=== PATIENT | female | born 2000 | race Caucasian/White ===

== ENCOUNTER 2023-10-07 00:03 | Inpatient (IN) | payer BC, MEDICAID, SELFPAY ==
[2023-10-06 21:14] LABS: Basophils % 0.1 %; Eosinophils % 0.2 %; Hematocrit 30.7 % (36-47); Lymphocytes # 1.3 10^3/uL (0.8-4.8); Lymphocytes % 8.8 %; Mean Corpuscular HGB Conc 29.6 g/dL (30-55); Mean Corpuscular Hemoglobin 22.6 pg (27-33); Mean Corpuscular Volume 76.2 fl (85-98); Monocytes # 1.2 10^3/uL (0.2-0.9); Monocytes % 7.6 %; Neutrophils # 12.43 10^3/uL (1.8-7.7); Neutrophils % 82.4 %; Nucleated Red Blood Cells % 0.1 %; Platelet Count 242 10^3/cmm (157-399); Red Blood Count 4.03 10^6/uL (3.85-5.65); Red Cell Distribution Width 17.4 % (12.1-15.1)
[2023-10-06] MEDS: lactated ringers 1,000 ML 999 ML IV (21:14)
[2023-10-06 21:27] VITALS: BMI 29.5
--- NOTE | 2023-10-06 22:06 | P.ANESASSM_ITS ---
Pre-Anesthetic Assessment Height/Weight: Height 1.6 m Weight 75.75 kg O2 Del Method Room Air 10/06/23 20:56 Labor epidural Familial anesthetic complications: None Was Beta William taken within 24 hours: N/A Was Clonidine taken within 24 hours: N/A Last intake: 1800 solid foods Social No alcohol and No tobacco Exam alert, oriented x 3, clear to auscultation bilaterally and regular rate & rhythm Airway Submandibular: within normal limits Cervical ROM: within normal limits Mallampati: Class II Dentition: partials History/ROS No significant history except as noted and No significant complaints Pulmonary None reported CV/HEM None reported None reported Hepatic None reported GI Gastroesophageal Reflux Disease Metabolic None reported Musc/skel None reported Neuropsych None reported Anesthetic Plan ASA status: 2 Anesthesia: Anesthesia Evaluation, General and Regional (specify below) (Epidural) Risk of > 500 ml blood loss (7ml/kg in children): No Medications/Allergies Home Medications Medication Instructions Recorded Confirmed Last Taken Type ferrous sulfate 27 mg iron tablet 27 mg PO DAILY 10/06/23 10/06/23 10/06/23 History [id number] 1 mg 1 tab PO DAILY 10/06/23 10/06/23 10/06/23 History tablet Allergies Allergy/AdvReac Type Severity Reaction Status Date / Time No Known Allergies Allergy Verified 10/06/23 21:21 Current Medications Generic Name Dose Route Start Last Admin Trade Name Freq PRN Reason Stop Dose Admin Lactated Ringer's 1,000 mls @ 999 mls/hr 10/06/23 20:58 10/06/23 21:14 Lactated Ringers IV 999 mls/hr .Q1H1M PRN Administration See label comments PFS Anesthesia Female Reproductive History : 2 Data Anesthesia 10/06/23 21:05 Short CBC 10/06/23 Range/Units 21:05 WBC 15.10 H (3.29-11.43) 10^3/uL Hgb 9.10 L (11.27-16.99) g/dL Hct 30.7 L (36-47) % MCV 76.2 L (85-98) fl Plt Count 242 (157-399) 10^3/cmm Neut % (Auto) 82.4 % Neut # (Auto) 12.43 H (1.8-7.7) 10^3/uL Blood Bank 10/06/23 21:05 Blood Type O Positive Rho(D) Type Rh positive Antibody Screen Negative Cardiac Studies: 2 No Data to Display
--- NOTE | 2023-10-06 22:38 | ANES.PROC ---
Anesthesia Procedures Procedure/Date: 10/06/23 Epidural: Time Out Performed: Yes Consents Signed: Procedure Consent and NPO Consent Consent: requested by attending/covering physician, from patient, risks and benefits reviewed and patient agrees to proceed Lumbar Level: L3-L4 Epidural position: sitting Epidural procedure: sterile prep of area (betadine), 1% lidocaine to numb the area (3 mLs), neg for paresthesia, test dose given, 1.5% xylocaine 1:200k epi (3 mLs/ 2 mLs), 0.2% Ropivacaine bolus ml (5 mLs), placed PCEA, no systemic response, sterile dressing applied, L.U.D. no apparent complications and 0.2% Ropiavacaine @ mls/hr (13) Additional Comments: SMITH 5cm, threaded catheter to 10cm
[2023-10-06] MEDS: ROPivacaine syringe 100 MG/50 ML SYRINGE 13 MG EPIDURAL (23:05)
[2023-10-06] MEDS: dextrose 5%-lactated ringers 1,000 ML 125 ML IV (23:05)
[2023-10-07] VITALS (15 sets, daily range): BP systolic 99–143; BP diastolic 53–76; PULSE 80–104; RESP 16–18; TEMP 36.4–37.1; O2SAT 97–99
--- NOTE | 2023-10-07 01:00 | PM.OPHPUD ---
Labor & Delivery H&P Update Date of Procedure: October 07, 2023 Date H&P Performed: 10/04/23 Changes to previous documentation: Dilated to 5 cm on admission to the hospital Admission Diagnosis: 23-year-old 2 para 1-0-0-1 at 38 weeks estimated gestational age in active labor Planned procedure: Vaginal delivery Other information: The patient is a pleasant female who has had an unremarkable . Her blood type is O+. Her antibody screen was negative. She arrived to the hospital in active labor. She been grecia since earlier in the day. Her GBS status was negative. She passed her 3-hour glucose screen. She is rubella immune. The remainder of her infectious disease profile was within normal limits. Related Problem List Diagnoses (1) 38 weeks gestation of : A&P Assessment and plan (1) 38 weeks gestation of : I anticipate routine labor and vaginal delivery. Status: Acute
--- NOTE | 2023-10-07 01:03 | PM.DELIVERY ---
Delivery Note: Date of delivery: October 07, 2023 Pre-delivery diagnoses: 23-year-old 2 para 1-0-0-1 at 30 weeks estimated gestational age in active labor Post-delivery diagnoses: Status post spontaneous vaginal delivery Procedure: Spontaneous vaginal delivery Delivering Physician: Ramana Carrington Estimated blood loss (mL): 200 Pre-Delivery Course: The patient presented to the hospital in active labor. Her cervix was noted to be 5 cm dilated. An epidural was placed. She then progressed to complete without difficulty. Her membranes ruptured just prior to delivery of the infant. Delivery: DELIVERY: The patient progressed to complete without difficulty. She delivered a male with a weight of 7 pounds 13 ounces with Apgars of 8, 9. The baby was delivered from the DANIE position. and placed on the mother's abdomen. He's mouth and nose were suctioned shortly after delivery. The cord was then clamped and cut. There was a nuchal cord x 1 which was easily reduced prior to delivery of the shoulders. There was no meconium. The placenta and 3 vessel cord were delivered intact shortly thereafter. The perineum and vaginal vault were carefully examined. 2 superficial vaginal wall lacerations were noted both left and right. She also did second-degree posterior midline tear which was repaired with 3-0 Vicryl in usual fashion.. Both the mother and the baby were in stable condition. Post-Delivery Status: Good A&P Assessment and plan (1) Spontaneous vaginal delivery: I anticipate routine care. Coding Level of Care Code Acute Code for Chg Fwd Diagnoses Spontaneous vaginal delivery O80
[2023-10-07] MEDS: benzocaine-menthol 78 gm Canister 1 SPRAY TOPICAL (03:34)
[2023-10-07] MEDS: HYDROcodone-acetaminophen 5-325 mg Tablet PO (03:34)
[2023-10-07] MEDS: prenatal vitamin Capsule 1 CAP PO (08:46)
[2023-10-07] MEDS: ibuprofen 800 mg tablet PO ×3 (08:46→20:53)
[2023-10-07] MEDS: docusate sodium 100 mg Capsule PO ×2 (08:46→20:53)
[2023-10-07 15:04] LABS: Hematocrit 27.8 % (36-47); Mean Corpuscular HGB Conc 29.1 g/dL (30-55); Mean Corpuscular Hemoglobin 22.4 pg (27-33); Mean Platelet Volume 10.6 fL (7.4-10.4); Platelet Count 214 10^3/cmm (157-399); Red Blood Count 3.61 10^6/uL (3.85-5.65); Red Cell Distribution Width 17.7 % (12.1-15.1)
--- NOTE | 2023-10-08 08:00 | ANE.PACU2 ---
Inpatient post-anesthesia follow up: Airway intact: Yes Vital signs: Temperature 98.3 F Pulse Rate 72 Respiratory Rate 16 Blood Pressure 119/64 Pulse Oximetry 98 Oxygen Delivery Me thod Room Air Oxygen Flow Rate Fraction of Inspir ed Oxygen Hydration adequate: Yes Nausea and vomiting: No Pain level: 1 Mental status: Baseline Epidural Start/End: Epidural Start Date: 10/06/23 Epidural Start Time: 22:04 Epidural End Date: 10/07/23 Epidural End Time: 01:03
--- NOTE | 2023-10-08 08:13 | P.DS_ITS ---
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 An epidural was placed. She quickly progressed to complete and had an unremarkable delivery of a healthy appearing male . She had a posterior second-degree tear which was repaired in usual fashion. Her course was unremarkable. Her bleeding was within normal limits. Her pain was well-controlled. Her baby was bottle-fed. There were no concerns. Information Peripartum Data: Infant Delivery Method: Vaginal Physical Exam Narrative: The patient is alert. She appears comfortable. Her heart has a regular rate and rhythm with no murmurs appreciated. Lungs are clear to auscultation bilaterally. Her fundus is firm and below the umbilicus. Urinary Catheter Management: [place]: Cath Placed During This Visit: yes Urinary Catheter Date of Insertion: 10/06/23 Urinary Catheter Time of Insertion: 23:05 Discharge Data Studies Completed and Pending Laboratory Results WBC 15.00 10^3/uL (3.29-11.43) H 10/07/23 14:40 RBC 3.61 10^6/uL (3.85-5.65) L 10/07/23 14:40 Hgb 8.10 g/dL (11.27-16.99) L 10/07/23 14:40 Hct 27.8 % (36-47) L 10/07/23 14:40 MCV 77.0 fl (85-98) L 10/07/23 14:40 MCH 22.4 pg (27-33) L 10/07/23 14:40 MCHC 29.1 g/dL (30-55) L 10/07/23 14:40 RDW 17.7 % (12.1-15.1) H 10/07/23 14:40 Plt Count 214 10^3/cmm (157-399) 10/07/23 14:40 MPV 10.6 fL (7.4-10.4) H 10/07/23 14:40 Neut % (Auto) 82.4 % 10/06/23 21:05 Lymph % (Auto) 8.8 % 10/06/23 21:05 [place] % (Auto) 7.6 % 10/06/23 21:05 Eos % (Auto) 0.2 % 10/06/23 21:05 Baso % (Auto) 0.1 % 10/06/23 21:05 Neut # (Auto) 12.43 10^3/uL (1.8-7.7) H 10/06/23 21:05 Lymph # (Auto) 1.3 10^3/uL (0.8-4.8) 10/06/23 21:05 [place] # (Auto) 1.2 10^3/uL (0.2-0.9) H 10/06/23 21:05 Eos # (Auto) 0.0 10^3/uL (0.0-0.8) 10/06/23 21:05 Baso # (Auto) 0.0 10^3/uL (0.0-0.1) 10/06/23 21:05 Nucleated RBC % (auto) 0.1 % 10/06/23 21:05 Nucleated RBCs # 0.0 /100WBC 10/06/23 21:05 Blood Type O Positive 10/06/23 21:05 Rho(D) Type Rh positive 10/06/23 21:05 Antibody Screen Negative 10/06/23 21:05 Vitals Last Vital Signs Temp 98.7 F 10/07/23 22:00 Pulse 89 10/07/23 22:00 Resp 18 10/07/23 22:00 BP 120/76 10/07/23 22:00 Pulse Ox 98 10/07/23 22:00 O2 Del Method Room Air 10/07/23 22:00 Results Labs OB ([facility]): Obstetrics US 06/28/23 Blood Type O Positive 10/06/23 Antibody Screen Negative 10/06/23 Hct 27.8 % (36-47) L 10/07/23 Hgb 8.10 g/dL (11.27-16.99) L 10/07/23 Rho(D) Type Rh positive 10/06/23 Plt Count 214 10^3/cmm (157-399) 10/07/23 Discharge Plan Discharge Patient Disposition: Home Condition: Stable Prescriptions: New ibuprofen 800 mg Tablet 800 mg PO TID Qty: 45 0RF Continued [id number] 1 mg Tablet 1 tab PO DAILY ferrous sulfate 27 mg iron Tablet 27 mg PO DAILY Discharge Orders: Discharge Order (Routine); Ordered 10/08/23 Ordered By: Ramana Carrington Referrals: Ramana Carrington MD [Physician] - 6 Weeks Discharge Diet: Usual diet Discharge Activity: Limit activity as instructed Patient Instructions: Depression (DC), Preeclampsia and Eclampsia After Delivery (GEN), Hemorrhage (DC), OB Discharge Report, OB Food/Drug Interaction Guide, OB Care at Home, Opioid Safety, OB Vaginal Deliveries 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
[2023-10-08 10:00] VITALS: BP 119/64; PULSE 72; RESP 16; TEMP 36.8
== END 2023-10-08 10:20 | disposition home or self-care (01) | DRG 807 ==
LOC: OPOB 00:06 → OBGYN 00:06
PROVIDERS: Admitting Provider Family Medicine; Visit Provider Family Medicine
DX: O99.62 Diseases of the digestive system complicating childbirth (principal); Z37.0 Single live birth; O70.1 Second degree perineal laceration during delivery; Z3A.38 38 weeks gestation of pregnancy
CPT/HCPCS: 36415; 51702; 59025; 59409; 85025; 85027; 86850; 86900; 99211; J2795; J7120; J7121

== ENCOUNTER → 2023-12-12 15:21 | Outpatient (BNVA) | payer BC, MEDICAID, SELFPAY | PROVIDERS: PCP Nurse Practitioner Family; Visit Provider Nurse Practitioner Family | DX: D64.9 Anemia, unspecified (principal) | CPT/HCPCS: 83550; 85025 ==

== ENCOUNTER → 2024-01-25 11:19 | Outpatient (BNVA) | payer BC, MEDICAID, SELFPAY | PROVIDERS: PCP Nurse Practitioner Family; Visit Provider Nurse Practitioner Family | DX: D50.9 Iron deficiency anemia, unspecified (principal) | CPT/HCPCS: 83550; 85025 ==

== ENCOUNTER → 2024-04-03 09:04 | Outpatient (BNVA) | payer BC, MEDICAID, SELFPAY | PROVIDERS: PCP Nurse Practitioner Family; Visit Provider Nurse Practitioner Family | DX: D50.9 Iron deficiency anemia, unspecified (principal) | CPT/HCPCS: 80053; 83550; 84443; 85025 ==

== ENCOUNTER → 2024-07-01 15:07 | Outpatient (BNVA) | payer BC, MEDICAID, SELFPAY | PROVIDERS: PCP Nurse Practitioner Family; Visit Provider Nurse Practitioner Family | DX: D50.9 Iron deficiency anemia, unspecified (principal); R53.83 Other fatigue | CPT/HCPCS: 83550; 85025 ==

== ENCOUNTER → 2025-01-28 10:32 | Outpatient (BNVA) | payer BC, MEDICAID, SELFPAY | PROVIDERS: PCP Nurse Practitioner Family; Visit Provider Nurse Practitioner Family | DX: N91.2 Amenorrhea, unspecified (principal); D50.9 Iron deficiency anemia, unspecified; R53.83 Other fatigue; N39.0 Urinary tract infection, site not specified; Z78.9 Other specified health status; F41.9 Anxiety disorder, unspecified | CPT/HCPCS: 81000; 81025; 82607; 83550; 84702; 85025; 87086 ==

== ENCOUNTER → 2025-07-22 08:49 | Outpatient (BNVA) | payer BC, MEDICAID, SELFPAY | PROVIDERS: PCP Nurse Practitioner Family; Visit Provider Nurse Practitioner Family | DX: D50.9 Iron deficiency anemia, unspecified (principal) | CPT/HCPCS: 83540 ==